=== PATIENT | male | born 1950 | race Hispanic/Latino ===

== ENCOUNTER 2020-01-28 11:41 | Emergency (ER) | payer MEDICARE ==
[~2020-01-28] VITALS: Ht 170.2 cm; Wt 83.9 kg
[2020-01-28] MEDS ORDERED: ASPIRIN CHEW81 MG PO (12:23)
[2020-01-28] MEDS ORDERED: CETIRIZINE HCL10 MG (12:23)
[2020-01-28] MEDS ORDERED: CARVEDILOL25 MG (12:23)
[2020-01-28] MEDS ORDERED: LISINOPRIL10 MG PO (12:23)
[2020-01-28] MEDS ORDERED: ZITHROMAX250 MG PO (12:55)
[2020-01-28 13:08] VITALS: BP 111/68
== END 2020-01-28 13:07 | disposition home or self-care (01) ==
LOC: FSED 12:16
DX: U07.1 COVID-19 (principal); J18.9 Pneumonia, unspecified organism; R53.1 Weakness; R05 Cough; R50.9 Fever, unspecified; I10 Essential (primary) hypertension; I25.10 Atherosclerotic heart disease of native coronary artery without angina pectoris
CPT/HCPCS: 71045; 80053; 85025; 99283